=== PATIENT | female | born 1995 | race Two or more races ===

== ENCOUNTER 2024-12-23 22:42 | Emergency (ER) | payer MEDICAID, SELFPAY ==
[2024-12-23 22:43] VITALS: BMI 30.7
[2024-12-23 23:59] VITALS: BP 131/88; PULSE 98; RESP 17; TEMP 36.8; O2SAT 97
--- NOTE | 2024-12-24 00:17 | XR_ITS ---
Examination: Complete OB ultrasound, less than 14 weeks, transabdominal Date and time of exam: December 24, 2024 0128 hours INDICATIONS: Vaginal bleeding beginning one week ago, worse today Technique: Obstetrical ultrasound images less than 14 weeks performed via transabdominal imaging Findings: Uterus 13.6 cm pole 0.6 cm corresponds to 6 weeks 3 days gestational age No cardiac motion 6.0 x 5.3 x 5.6 cm masslike area in the cervix which may represent retained products versus cervical mass Ultrasonographic survey of visible and placental structures unremarkable. Amniotic fluid volume appears appropriate for this estimated gestational age. Right ovary 1.9 cm arterial flow Left ovary 3.2 cm arterial flow. IMPRESSION: Uterus 13.6 cm with pole 0.6 cm corresponding to 6 weeks 3 days gestational age No cardiac motion Mass versus retained products of conception in the cervix, recommend transvaginal pelvic sonography follow-up
[2024-12-24 00:49] LABS: Basophils # (Auto) 0.1 Thou/mm3 (0.0-0.2); Basophils % (Auto) 1 % (0-2.5); Eosinophils # (Auto) 0.1 Thou/mm3 (0.0-0.5); Eosinophils % (Auto) 1 % (0-10); Hematocrit 36.4 % (36.0-46.0); Hemoglobin 12.7 g/dL (12.0-16.0); Immature Granulocytes % (Auto) 0 % (0-0); Immature Granulocytes Auto 0.02 Thou/mm3 (0.00-0.00); Lymphocytes # (Auto) 2.2 Thou/mm3 (1.0-4.8); Lymphocytes % (Auto) 21 % (10-50); Mean Corpuscular HGB Conc 34.9 g/dl (31.0-37.0); Mean Corpuscular Hemoglobin 32.7 pg (25.0-35.0); Mean Corpuscular Volume 94 fL (80-100); Monocytes # (Auto) 0.6 Thou/mm3 (0.0-0.8); Monocytes % (Auto) 5 % (0-12); Neutrophils # (Auto) 7.4 Thou/mm3 (1.8-7.7); Neutrophils % (Auto) 72 % (37-80); Nucleated Red Blood Cell % 0 /100 WBC (0); Platelet Count 313 Thou/mm3 (140-440); RDW Standard Deviation 43.1 fL (36.4-46.3); Red Blood Count 3.88 Miln/mm3 (4.00-5.20); White Blood Count 10.4 Thou/mm3 (3.6-11.0)
[2024-12-24] MEDS: METOCLOPRAMIDE INJ 5 MG/ML VIAL 2 ML 10 MG IM (00:55)
[2024-12-24 01:04] LABS: Alanine Aminotransferase 14 U/L (10-49); Albumin, Serum 4.5 gm/dL (3.5-5.0); Albumin/Globulin Ratio 1.6 (1.2-2.2); Alkaline Phosphatase 80 U/L (46-116); Anion Gap 10 (7-16); Aspartate Amino Transferase 18 U/L (0-34); BUN/Creatinine Ratio 11 Ratio (12-20); Bilirubin,Total 0.7 mg/dL (0.3-1.2); Blood Urea Nitrogen 8 mg/dL (9-23); Calcium 9.8 mg/dL (8.3-10.6); Calcium (Corrected) 9.8 mg/dL (8.5-10.1); Carbon Dioxide 25.3 mMol/L (20.0-31.0); Chloride 104 mMol/L (98-107); Creatinine (Component) 0.7 mg/dL (0.6-1.3); Estimated Creatinine Clearance 98.3 mL/min (>60); Globulin 2.9 gm/dL (2.3-3.5); Glucose 110 mg/dL (74-106); Osmolality,Calculated 276 (275-295); Potassium 4.1 mMol/L (3.4-5.1); Sodium 139 mMol/L (136-145); Total Protein 7.4 gm/dL (5.7-8.2); eGFR > 60 See Note
[2024-12-24 01:59] LABS: Beta HCG,Quantitative 6830 mIU/mL (<5.0)
--- NOTE | 2024-12-24 03:32 | PRELIM_ITS ---
Obstetric ultrasound (transabdominal) with Doppler and wave Doppler spectral analysis. December 24, 2024 0128 hours Clinical history: Vaginal bleeding. Technique: Real-time ultrasound was performed using Duplex scanning including arterial inflow, venous outflow, color and spectral Doppler analysis of both ovaries. Comparison: None. Findings: There is an gestational sac in the lower uterine segment with a single fetus of mean gestational age 6 weeks and 4 days (CRL= 0.69 cm), gestational sac diameter is 2.2 cm. cardiac activity is not detected. The uterus measures 6.0 x 5.3 x 5.6 cm. Endometrial thickness is 0.7 cm. The right ovary measures 1.9 x 1.8 x 1.5 cm and is unremarkable. The left ovary measures 3.2 x 1.8 x 2.1 cm and is unremarkable. Normal blood flow in the bilateral ovaries with normal wave Doppler spectral analysis. There is no free fluid in the pelvis. Hyperechoic mass with fluid within anterior to the gestational sac within the cervix measuring 6.0 x 5.3 x 5.6 cm. Impression: Gestational sac in the lower uterine segment with a single fetus of mean gestational age 6 weeks and 4 days. No cardiac activity detected. Findings are suspicious for ongoing . Please, correlate clinically. Short-term follow-up is recommended. No evidence of ovarian torsion. Hyperechoic mass with fluid within anterior to the gestational sac within the cervix. Further evaluation for characterization is recommended. Discussion Details: Results verbally communicated to : Dr. Arambula at 03:08 AM 12/24/2024 Report Electronically Signed By: Cole Vang 12/24/2024 3:32:12 AM [EST]
[2024-12-24 03:52] VITALS: BP 98/64; PULSE 76; RESP 18; TEMP 36.7; O2SAT 96
[2024-12-24] MEDS: RINGERS LACTATED 1000 ML 1,000 ML 999 ML IV (04:09)
[2024-12-24 05:21] VITALS: BP 107/57; PULSE 80; RESP 18; TEMP 36.8; O2SAT 100
--- NOTE | 2024-12-24 05:30 | PC.NURSE ---
pt reports feeling better and ready to go home. provider Tyesha made aware.
--- NOTE | 2024-12-24 05:45 | EDNOTE_ITS ---
ED OB Contraction Preg RMI/HPI General Chief complaint: Vaginal Bleeding Stated complaint: VAGINAL BLEEDING AND 11 WKS Time Seen by Provider: 12/24/24 00:16 Arrival date/time: 12/23/24 22:42 29F at approximately 11 weeks and with no significant PMH presents to ED with 2 days of vaginal bleeding. Limitations: no limitations Related Data Home Medications ?Medication ?Instructions ?Recorded ?Confirmed Vitamin * 1 tab PO QDAY #0 t abs 08/09/15 Previous Rx's ?Medication ?Instructions ?Recorded Hydrocodone/Acetaminophen * (NORCO 1 tab PO Q4H PRN AB DOMINAL PAIN 08/18/15 5/325 *) #40 tabs ibuprofen 600 mg tablet 600 mg PO Q6HR PRN PAIN #30 tabs 08/18/15 Allergies Allergy/AdvReac Type Severity Reaction Status Date / Time No Known Allergies Allergy Unknown Uncoded 12/23/24 22:43 Review of Systems Review of Systems Systems Reviewed: All systems reviewed, normal except as documented Constitutional Constitutional: Reports system reviewed and no additional complaints, except as documented, Denies fever(s) and Denies headache(s) ENT Ears, Nose, Mouth, and Throat: Denies disequilibrium and Denies headache(s) Cardiovascular Cardiovascular: Reports system reviewed and no additional complaints, except as documented, Denies chest pain and Denies dyspnea Respiratory Respiratory: Reports system reviewed and no additional complaints, except as documented, Denies cough and Denies dyspnea Gastrointestinal Gastrointestinal: Reports system reviewed and no additional complaints, except as documented, Denies abdominal pain, Denies nausea and Denies vomiting Genitourinary Genitourinary: Reports as per HPI, Reports abnormal vaginal bleeding and Reports pelvic pain Neurologic Neurologic: Reports system reviewed and no additional complaints, except as documented, Denies confusion, Denies disequilibrium and Denies headache(s) Psychiatric Psychiatric: Denies confusion Past Medical History Past Medical History CARDIAC: Negative Congestive Heart Failure RESPIRATORY: Negative Chronic Obstructive Pulmonary Disease (COPD) GENITOURINARY: Negative Renal Disease ENDOCRINE: Negative Diabetes Mellitus Type 1 or Diabetes Mellitus Type 2 Surgical History SURGICAL: Positive Section Social History SMOKING STATUS: Never smoker ED Exam General Limitations: Present no limitations General appearance: Present alert and in no apparent distress Head Head exam: Present atraumatic Eye Eye exam: Present normal appearance, PERRL and EOMI ENT ENT exam: Present normal exam, normal oropharynx and mucous membranes moist Neck Neck exam: Present normal inspection, full ROM and trachea midline Chest Chest inspection: Present normal inspection and symmetric chest wall rise Respiratory Respiratory exam: Present normal lung sounds bilaterally Cardiovascular Cardiovascular exam: Present regular rate, normal rhythm and normal heart sounds Abdominal Exam Abdominal exam: Present soft and normal bowel sounds Extremities Exam Extremities exam: Present normal inspection and full ROM Back Exam Back exam: Present normal inspection and full ROM Neurological Exam Neurological exam: Present alert, oriented X3 and CN II-XII intact Psychiatric Psychiatric exam: Present normal affect and normal mood Skin Skin exam: Present warm, dry, intact and normal color Course Quality Measures none Orders Category Date Time Status Insert IV NOW Care 12/24/24 03:54 Active US OB <= 14 weeks fetus Stat Exams 12/24/24 00:17 Taken ABO/RH Type Stat Lab 12/24/24 00:33 Completed Beta HCG,Quantitative Stat Lab 12/24/24 00:33 Completed CBC Stat Lab 12/24/24 00:33 Completed CMP [Comprehensive Metabolic Panel] Stat Lab 12/24/24 00:33 Completed Metoclopramide Inj [Reglan Inj] Med 12/24/24 00:17 Discontinued 10 mg IM X1 ONE Ringers Lactated 1000 ml [Lactated Ringers] 1,000 ml Med 12/24/24 03:55 Discontinued IV 999 mls/hr Vital Signs Vital signs: Vital Signs Temperature 98.2 F 12/23/24 23:59 Pulse Rate 98 12/23/24 23:59 Respiratory Rate 17 12/23/24 23:59 Blood Pressure 131/88 H 12/23/24 23:59 Pulse Oximetry (%) 97 12/23/24 23:59 Oxygen Delivery Method Room Air 12/23/24 23:59 O2 at 97% on RA and WNLs Vaginal Bleeding MDM Narrative MDM Narrative: 29F at approximately 11 weeks and with no significant PMH presents to ED with 2 days of vaginal bleeding. Physical exam reveals well-appearing female. Patient is afebrile, calm, and alert. No leukocytosis or anemia. CMP unremarkable. HCG somewhat low for 11 weeks. US shows likely active miscarriage. Upon reassessment, BP is somewhat so IVFs given. Patient felt better afterwards and BP improved. Patient data External records reviewed:: [facility] previous records Clinical information provided by:: patient Social determinants that could affect healthcare access:: none Patient has the following chronic illnesses:: none How is presenting disease/condition affected by chronic disease/condition?: no chronic disease Evaluation data The following diagnostics were reviewed and interpreted by me:: lab results and radiology exam(s) Lab and/or radiology exams considered but not ordered:: ordered Interpretation Summary: above Medications / Prescriptions Medications or Prescriptions considered but not ordered:: ordered Medication administrations:: Medication Administration History Discontinued Medications Lactated Ringer's (Lactated Ringers) 1,000 mls @ 999 mls/hr IV .Q1H1M ONE Stop: 12/24/24 04:55 Last Infusion: 12/24/24 05:18 Dose: Infused Documented By: Admin: 12/24/24 04:09 Dose: 999 mls/hr Documented By: THAI Metoclopramide HCl (Metoclopramide Inj 5 Mg/Ml Vial 2 Ml) 10 mg IM X1 ONE; Protocol Stop: 12/24/24 00:18 Last Admin: 12/24/24 00:55 Dose: 10 mg Documented By: JAMI above Consultations Consultation(s) initiated? (list below): No Diagnosis Vaginal Bleeding Differential Diagnosis: missed , threatened , dysfunctional uterine bleeding, menometrorrhagia, incomplete , ectopic without intrauterine and vaginal bleeding Most likely diagnosis given after review of the tests above:: incomplete miscarriage Admission Indicated Admission indicated?: not indicated Admission Request Was there a request for admission?: No Disposition Plan Disposition Plan: Discharge Discharge Attestation Discharge Attestation: The patient and all family members were given an opportunity to ask questions and understood the discharge instructions. Discharge instructions specifically effects, indications for sooner follow up or return to the emergency department, and the expected course of current diagnosis. Patient condition: Stable Discharge Plan Plan Patient Disposition: HOME (Self Care) Disposition Comment: Stable Prescriptions/Referrals Prescriptions/Med Rec: No Action Vitamin * 1 EACH tablet 1 tab PO QDAY Qty: 0 ibuprofen 600 MG tablet 600 mg PO Q6HR PRN (Reason: PAIN) Qty: 30 0RF Hydrocodone/Acetaminophen * (NORCO 5/325 *) 1 TAB tablet 1 tab PO Q4H PRN (Reason: ABDOMINAL PAIN) Qty: 40 0RF Referrals: Ariana Good MD [Primary Care Provider] - In 1 week Problem List Clinical Impression: Incomplete miscarriage Patient/Caregiver Discharge Instructions Education Materials: ED Miscarriage, Incomplete Additional Instructions: Please follow-up with PCP/OBYGN within 24-48 hours and return immediately if symptoms worsen. Print Language: Romansh Stand Alone Forms: Patient Portal Info Letter PA/[employer] Supervising Physician PA/[employer] Supervising Physician: Dr. Pineda
== END 2024-12-24 05:40 | disposition home or self-care (01) ==
PROVIDERS: Physician Assistant; Emergency Provider Emergency Medicine; PCP Obstetrics & Gynecology
DX: O03.4 Incomplete spontaneous abortion without complication (principal)
CPT/HCPCS: 36415; 76801; 80053; 81001; 84702; 85025; 86900; 86901; 87086; 96360; 96372; 99284; J2765; J7120